=== PATIENT | male | born 1970 | race Caucasian/White ===

== ENCOUNTER 2016-09-01 12:12 | Emergency (ER) | payer MEDICAID, OTHER ==
[~2016-09-01] VITALS: Ht 172.7 cm; Wt 79.0 kg
[2016-09-01 12:56] VITALS: BP 127/74
--- NOTE | 2016-09-01 15:53 | NUR ---
PATIENT LEFT WITHOUT BEING SEEN BY DR. LISA. NO FURTHER CARE PROVIDED FOR PATIENT.
== END 2016-09-01 15:53 | disposition left against medical advice (07) ==
LOC: MED 12:12
DX: R19.7 Diarrhea, unspecified (principal); Z53.21 Procedure and treatment not carried out due to patient leaving prior to being seen by health care provider